=== PATIENT | female | born 1990 | race Caucasian/White ===

== ENCOUNTER 2021-03-31 14:01 | Emergency (ER) | payer OTHER, SELFPAY ==
[2021-03-31 14:02] VITALS: BP 125/76; PULSE 98; RESP 16; TEMP 36.4; O2SAT 100; BMI 22.8
--- NOTE | 2021-03-31 14:08 | ED.RN ---
triage nurse reviewing rules of detox with patient and answering all of her questions. pt was under the assumption she could come in and get assessed and get blood work then come back and enter detox. pt states she has to get a few things in order and i will come back in the morning. Pt pleasant and verbalizes understanding of detox program. Pt leaves without being seen in the ED at this time stating she will come back tomrorow.
== END 2021-03-31 14:08 | disposition left against medical advice (07) ==
LOC: ED 14:17
PROVIDERS: PCP Family Medicine
DX: Z53.21 Procedure and treatment not carried out due to patient leaving prior to being seen by health care provider (principal)